=== PATIENT | male | born 1980 | race Caucasian/White ===

== ENCOUNTER 2017-02-01 21:54 | Emergency (ER) | payer OTHER, SELFPAY ==
[2017-02-01 22:01] VITALS: BP 149/90; PULSE 88; TEMP 97.3; O2SAT 98
[2017-02-01] MEDS ORDERED: Lidocaine 1% Inj (20ml) INFIL STA (22:06)
[2017-02-01] MEDS ORDERED: Oxycodone/Acetaminophen 5/325 mg Tab PO STA (22:06)
--- NOTE | 2017-02-01 22:08 | C.PDOC ---
History Of Present Illness Patient reports he got his left pinky finger caught in gate and now complains of pain and nail is partially falling off. Denies any other injury Time Seen by Provider: 02/01/17 22:00 Chief Complaint (Nursing): Finger,Hand,&Wrist History Per: Patient History/Exam Limitations: no limitations Onset/Duration Of Symptoms: Sudden Onset Current Symptoms Are (Timing): Still Present Exacerbating Factor(s): Nothing Recent travel outside of the [place]: No Past Medical History Reviewed: Historical Data, Nursing Documentation, Vital Signs Vital Signs: Last Vital Signs Temp 97.3 F L 02/01/17 21:59 Pulse 88 02/01/17 21:59 Resp 20 02/01/17 23:06 BP 149/90 02/01/17 21:59 Pulse Ox 98 02/02/17 00:21 - Medical History PMH: No Chronic Diseases - [facility] Procedures CL FX REDUC-METACAR/CAR (10/13/13) Family History: States: Unknown Family Hx - Social History Hx Tobacco Use: Yes Hx Alcohol Use: Yes Hx Substance Use: No - Immunization History Hx Tetanus Toxoid Vaccination: No Hx Influenza Vaccination: No Hx Pneumococcal Vaccination: No Review Of Systems Except As Marked, All Systems Reviewed And Found Negative. Musculoskeletal: Positive for: Hand Pain (Left pinky finger) Neurological: Negative for: Weakness, Numbness Physical Exam - Physical Exam Appears: Non-toxic, Other (uncomfortable in pain) Skin: Warm, Dry Head: Atraumatic, Normacephalic Eye(s): bilateral: Normal Inspection Neck: Normal ROM Chest: Symmetrical Extremity: Tenderness (Left 5th digit, distal finger), Swelling (Mild, left 5th digit, distal finger), Other (Partial nail avulsion from proximal plate with cuticle, and mild bleeding.) Neurological/Psych: Oriented x3, Normal Speech Gait: Steady ED Course And Treatment O2 Sat by Pulse Oximetry: 98 (Room air) Pulse Ox Interpretation: Normal - Other Rad Left hand x-ray X-Ray: Interpreted by Me, Viewed By Me Interpretation: No acute abnormalities. Laceration - Laceration Repair Left 5th digit Wound Length (In cm): 1 Wound Cleansed With: Sterile Saline Anesthesia: Lidocaine 1% Wound Examination: Irrigated With Saline, No FB With Wound Exploration, No Tendon Injury With Wound Exploration Wound Closure: Suture (2) Suture Technique And Material Used: Nylon (4-0) Wound Complexity: Intermediate Medical Decision Making Medical Decision Making: Impression: 36 year old male with left fingernail avulsion. Plan: * Percocet * Left hand x-ray * Sutures Progress: Xray reviewed showing possible tuft fracture. Under sterile conditions, anesthesia achieved via digital block using lidocaine 1%. Suture nail in place using 4-0 nylon suture at the margins. zeroform dresssing applied and nonadherent dressing also applied. Aluminum finger splint was applied. Will discharge home with Rx for percocet and keflex. Advise patient on dressing changes and suture removal in 7-10 days. Instruct to follow up with a hand specialist Disposition Counseled Patient/Family Regarding: Need For Followup, Rx Given - Disposition Referrals: Guanakito Alvarado MD [Staff Provider] - Disposition: HOME/ ROUTINE Disposition Time: 22:49 Condition: STABLE Additional Instructions: Take antibiotic twice a day and pain medicine as needed Please follow up with hand specialist in the clinic Need suture removal in 7-10 days You may call [facility] for any assistance [phone]. Prescriptions: Cephalexin [cephalexin] 500 mg PO Q12 #14 cap oxyCODONE/Acetaminophen [Percocet 5/325 mg Tab] 1 tab PO Q8 #10 tab Instructions: Nail Avulsion (ED) Forms: Work Excuse - POA Present On Arrival: Falls Or Trauma - Clinical Impression Clinical Impression: Closed fracture of tuft of distal phalanx of finger, Nail avulsion - Scribe Statement The provider has reviewed the documentation as recorded by the Zoltanibjosue Brink All medical record entries made by the Zoltanibjosue were at my direction and personally dictated by me. I have reviewed the chart and agree that the record accurately reflects my personal performance of the history, physical exam, medical decision making, and the department course for this patient. I have also personally directed, reviewed, and agree with the discharge instructions and disposition.
[2017-02-01] MEDS ORDERED: Lidocaine 1% Inj (20ml) ONE (22:09)
[2017-02-01] MEDS ORDERED: Oxycodone/Acetaminophen 5/325 mg Tab ONE (22:09)
[2017-02-01 23:11] VITALS: RESP 20
--- NOTE | 2017-02-02 08:16 | RAD ---
PROCEDURE: Left small finger radiographs. HISTORY: pain from injury COMPARISON: None. TECHNIQUE: AP radiograph of the left hand, as well as spot oblique and lateral images of left small finger were obtained. FINDINGS: LEFT SMALL FINGER: 10/13/2013 there is a nondisplaced fracture of the tuft of 5th distal phalanx. Remainder of the left hand (as seen on the AP view) is grossly unremarkable. JOINTS: Normal. SOFT TISSUES: Normal. OTHER FINDINGS: None. IMPRESSION: Nondisplaced transverse fracture of the tuft of the 5th distal phalanx.
== END 2017-02-01 23:06 | disposition home or self-care (01) ==
LOC: C.ER 21:54
DX: S62.637A Displaced fracture of distal phalanx of left little finger, initial encounter for closed fracture (principal); S61.307A Unspecified open wound of left little finger with damage to nail, initial encounter; W23.1XXA Caught, crushed, jammed, or pinched between stationary objects, initial encounter; Y92.410 Unspecified street and highway as the place of occurrence of the external cause

== ENCOUNTER 2017-02-02 13:33 | Emergency (ER) | payer MEDICAID, OTHER ==
[2017-02-02 13:37] VITALS: BMI 29.2
[2017-02-02 13:38] VITALS: BP 122/71; PULSE 88; RESP 18; TEMP 98.1; O2SAT 98
--- NOTE | 2017-02-02 14:42 | C.PDOC ---
History Of Present Illness 36 yo male come in for wound check. Pt reports, sustained avulsion injury to Left 5th finger yesterday, when was seen here in ED and laceration repaired w/ sutures. Last night, noted bleeding from wound. At present time, pt reports bleeding resolved. Otherwise, denies fever, chills, weakness, sensory or vascular deficits to injured finger. Ambulate to Ed for evaluation, not in any apparent distress. Time Seen by Provider: 02/02/17 14:06 Chief Complaint (Nursing): Wound Check History Per: Patient History/Exam Limitations: no limitations Onset/Duration Of Symptoms: Days Ago (1 ) Current Symptoms Are (Timing): Still Present Past Medical History Reviewed: Historical Data, Nursing Documentation, Vital Signs Vital Signs: Last Vital Signs Temp 98.1 F 02/02/17 14:44 Pulse 88 02/02/17 14:44 Resp 18 02/02/17 14:44 BP 122/71 02/02/17 14:44 Pulse Ox 98 02/02/17 14:59 - Medical History PMH: No Chronic Diseases - [facility] Procedures CL FX REDUC-METACAR/CAR (10/13/13) Family History: States: No Known Family Hx - Social History Hx Tobacco Use: Yes Hx Alcohol Use: Yes Hx Substance Use: No - Immunization History Hx Tetanus Toxoid Vaccination: Yes Hx Influenza Vaccination: No Hx Pneumococcal Vaccination: No Review Of Systems Except As Marked, All Systems Reviewed And Found Negative. Constitutional: Negative for: Fever, Chills Musculoskeletal: Positive for: Other (Left 5th finger injury ) Skin: Positive for: Lesions Neurological: Negative for: Weakness, Numbness Physical Exam - Physical Exam Appears: Well, Non-toxic, No Acute Distress Skin: Normal Color, Warm, Other (Left 5th distal phalanx: partial avulsion to nail cuticle, sutures#2 noted below nail fold. Small skin avulsion with bloody oozing. FAROM, no neurovascular deficits distal to injury.) Extremity: Normal ROM (Left hand), No Deformity, No Swelling Neurological/Psych: Oriented x3, Normal Speech, Normal Motor, Normal Sensation, Normal Reflexes ED Course And Treatment O2 Sat by Pulse Oximetry: 98 - Other Rad Left 5th finger X-Ray: Read By Radiologist Interpretation: Creator : Carlos A Chadwick MD. Dictator : Carlos A Chadwick MD. Pc Tech : Parts Interpreter : Carlos A Chadwick MD. Approver2 : Report Date : 09/2016 08:15:06. My Comment : . PROCEDURE: Left small finger radiographs. HISTORY: pain from injury. COMPARISON: None. TECHNIQUE: AP radiograph of the left hand, as well as spot oblique and lateral images of left small finger were obtained. FINDINGS: LEFT SMALL FINGER: 10/13/2013 there is a nondisplaced fracture of the tuft of 5th distal phalanx. Remainder of the left hand (as seen on the AP view) is grossly unremarkable. JOINTS: Normal. SOFT TISSUES: Normal. OTHER FINDINGS: None. IMPRESSION: Nondisplaced transverse fracture of the tuft of the 5th distal phalanx. Progress Note: Wound was cleaned with peroxide. Xeroform, sterile dressing applied. Pt advised on wound care. Splint re-applied to finger. ref. to f/u with hand specialsit in 2-3 days for re-eavluation. return to ED if any worsening or new changes. Disposition Counseled Patient/Family Regarding: Diagnosis, Need For Followup - Disposition Referrals: Guanakito Alvarado MD [Staff Provider] - Disposition: HOME/ ROUTINE Disposition Time: 14:39 Condition: STABLE Prescriptions: Ibuprofen [Motrin Tab] 600 mg PO Q6 #20 tab Instructions: Finger Laceration (ED), Nail Avulsion (ED), Finger Fracture (ED) Forms: Work Excuse - Clinical Impression Clinical Impression: Nail avulsion, Finger fracture - PA / [employer] / Resident Statement MD/DO has reviewed & agrees with the documentation as recorded. - Scribe Statement The provider has reviewed the documentation as recorded by the Scribe Irma Santoro All medical record entries made by the Scribe were at my direction and personally dictated by me. I have reviewed the chart and agree that the record accurately reflects my personal performance of the history, physical exam, medical decision making, and the department course for this patient. I have also personally directed, reviewed, and agree with the discharge instructions and disposition.
== END 2017-02-02 14:44 | disposition home or self-care (01) ==
LOC: C.ER 13:33
DX: Z48.00 Encounter for change or removal of nonsurgical wound dressing (principal); S62.637D Displaced fracture of distal phalanx of left little finger, subsequent encounter for fracture with routine healing; X58.XXXD Exposure to other specified factors, subsequent encounter

== ENCOUNTER 2018-10-04 10:15 | Emergency (ER) | payer SELFPAY ==
[2018-10-04 10:16] VITALS: BMI 29.2
[2018-10-04 10:24] VITALS: BP 128/78; PULSE 68; RESP 20; TEMP 98.7; O2SAT 100
[2018-10-04] MEDS ORDERED: Fluorescein 1 mg Ophthalmic Strip OD ONE (10:36)
[2018-10-04] MEDS ORDERED: Fluorescein 1 mg Ophthalmic Strip ONE ×2 (10:38→11:21)
[2018-10-04] MEDS ORDERED: Tetracaine 0.5% Ophth (OR ONLY) ONE (10:38)
[2018-10-04] MEDS ORDERED: Bacitracin Opht OINT 3.5GM OD STA (10:53)
--- NOTE | 2018-10-04 11:28 | C.PDOC ---
History Of Present Illness 37 y/o male presents to the ER complaining of right eye pain and redness which has been present for the past 2 days. Patient states that his eye feels dry and he has been constantly rubbing his eye. Patient reports that he took out his contact lens 2 days ago and he thought the pain would spontaneously resolve. However, he continues to have pain in the eye. He notes that he has blurry vision. Denies having fever, chills,neck pain, nausea, and vomiting. Time Seen by Provider: 10/04/18 10:33 Chief Complaint (Nursing): Eye Problem History Per: Patient History/Exam Limitations: no limitations Onset/Duration Of Symptoms: Days Current Symptoms Are (Timing): Still Present Severity: Moderate Past Medical History Reviewed: Historical Data, Nursing Documentation, Vital Signs Vital Signs: Last Vital Signs Temp 98.7 F 10/04/18 10:23 Pulse 68 10/04/18 10:23 Resp 20 10/04/18 10:23 BP 128/78 10/04/18 10:23 Pulse Ox 100 10/04/18 10:23 - Medical History PMH: No Chronic Diseases - [facility] Procedures CL FX REDUC-METACAR/CAR (10/13/13) Family History: States: No Known Family Hx - Social History Hx Tobacco Use: Yes Hx Alcohol Use: Yes Hx Substance Use: No - Immunization History Hx Tetanus Toxoid Vaccination: Yes Hx Influenza Vaccination: No Hx Pneumococcal Vaccination: No Review Of Systems Except As Marked, All Systems Reviewed And Found Negative. Constitutional: Negative for: Fever, Chills Eyes: Positive for: Pain (right eye pain'), Redness (right eye redness) Gastrointestinal: Negative for: Nausea, Vomiting Musculoskeletal: Negative for: Neck Pain Physical Exam - Physical Exam Appears: Non-toxic, No Acute Distress Skin: Normal Color, Warm, Dry Head: Atraumatic, Normacephalic Eye(s): bilateral: Other (erythematous, watery, lens intact, lens was removed, semicircular abrasion to medial aspect of cornea, opacification at 2:00 o'clock in the cornea, eye visualized using fluorescein with slit lamp and tetracaine for pain), left: Normal Inspection Nose: Normal Oral Mucosa: Moist Neck: Supple Chest: Symmetrical Neurological/Psych: Oriented x3, Normal Speech ED Course And Treatment O2 Sat by Pulse Oximetry: 100 (RA) Pulse Ox Interpretation: Normal Medical Decision Making Medical Decision Making: Bacitracin applied and eye patch applied. 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 Disposition Counseled Patient/Family Regarding: Diagnosis, Need For Followup, Rx Given - Disposition Referrals: Jadiel Harrell MD [Staff Provider] - Disposition: HOME/ ROUTINE Disposition Time: 11:24 Condition: STABLE Prescriptions: Ofloxacin Ophth 0.3% [Ocuflox Ophth 0.3%] 2 drop OS TID #1 bottle Instructions: Corneal Abrasion (DC) Forms: [employer] ([place]in[place]), General Discharge Instructions - POA Present On Arrival: None - Clinical Impression Clinical Impression: Corneal abrasion - Scribe Statement The provider has reviewed the documentation as recorded by the Scribe Rajendra Jay Provider Attestation: All medical record entries made by the Scribe were at my direction and personally dictated by me. I have reviewed the chart and agree that the record accurately reflects my personal performance of the history, physical exam, medical decision making, and the department course for this patient. I have also personally directed, reviewed, and agree with the discharge instructions and disposition.
== END 2018-10-04 11:52 | disposition home or self-care (01) ==
LOC: C.ER 10:15
DX: S05.01XA Injury of conjunctiva and corneal abrasion without foreign body, right eye, initial encounter (principal); X58.XXXA Exposure to other specified factors, initial encounter; Z72.0 Tobacco use